=== PATIENT | female | born 1955 | race Caucasian/White ===

== ENCOUNTER 2017-08-29 17:23 | Emergency (ER) | payer BC ==
[~2017-08-29] VITALS: Ht 167.6 cm; Wt 90.7 kg
[~2017-08-29 17:23] MED LIST: Keflex500 MG PO; SULTRIDS PO
[2017-08-29 19:31] LABS: Anion Gap 9 mmol/L (6-16); Blood Urea Nitrogen 17 mg/dL (8-24); Bun/Creatinine Ratio 33.3 (12.0-20.0); CO2, Blood 22 mmol/L (21-32); Calcium, Blood 9.1 mg/dL (8.5-10.1); Chloride, Blood 104 mmol/L (98-108); Creatinine, Blood 0.51 mg/dL (0.40-1.00); Glomerular Filtration Rate >60 (60-); Glucose, Blood 287 mg/dL (70-99); Potassium, Blood 4.2 mmol/L (3.5-5.5); Sodium, Blood 135 mmol/L (136-145)
[2017-08-29] MEDS ORDERED: Roxicodone5 MG PO (20:17)
[2017-08-29] MEDS ORDERED: METF500C PO (20:19)
== END 2017-08-29 20:50 | disposition home or self-care (01) ==
LOC: ER 17:23
PROVIDERS: Emergency Medicine
DX: S82.851A Displaced trimalleolar fracture of right lower leg, initial encounter for closed fracture (principal); E11.9 Type 2 diabetes mellitus without complications; X50.9XXA Other and unspecified overexertion or strenuous movements or postures, initial encounter; Z88.1 Allergy status to other antibiotic agents
CPT/HCPCS: 36415; 73600; 73610; 76000; 80048; 83036; J3010; J7030

== ENCOUNTER 2017-08-31 12:53 | Day surgery (SDC) | payer BC ==
[~2017-08-31] VITALS: Ht 167.6 cm; Wt 87.7 kg
[~2017-08-31 12:53] MED LIST changes: +METF500C PO; +Roxicodone5 MG PO
[2017-08-31] MEDS ORDERED: Excedrin Extra1 EACH (14:31)
== END 2017-08-31 12:54 | disposition home or self-care (01) ==
LOC: ORSCSDS 12:53
PROVIDERS: Podiatrist Foot & Ankle Surgery
PROC: 0QSG04Z Reposition Right Tibia with Internal Fixation Device, Open Approach (ICD-10-PCS; principal; 2017-08-31 15:00)
PROC: 0QSJ04Z Reposition Right Fibula with Internal Fixation Device, Open Approach (ICD-10-PCS; principal; 2017-08-31 15:00)
DX: S82.851A Displaced trimalleolar fracture of right lower leg, initial encounter for closed fracture (principal); E11.9 Type 2 diabetes mellitus without complications; Z79.899 Other long term (current) drug therapy
CPT/HCPCS: 82947; C1713; C1769; J0171; J0690; J1100; J1885; J2250; J2405; J3010; J7120

== ENCOUNTER → 2022-11-25 | Outpatient (CLI) | payer SELFPAY ==
[~2022-11-25] MED LIST changes: +Excedrin Extra1 EACH
== END ==
LOC: LAB 15:37 → LAB SHORT 15:37
DX: R81 Glycosuria (principal)
CPT/HCPCS: 87086; 87147

== ENCOUNTER → 2024-07-09 | Outpatient (CLI) | payer MEDICARE ==
[2024-07-09 16:45] LABS: Bacterial Vaginosis PCR Negative (NEGATIVE); Candida glabrata-krusei, PCR NOT DETECTED (NOT DETECT)
[2024-07-10 00:01] LABS: Candida Group, PCR DETECTED (NOT DETECT)
== END ==
LOC: LAB SHORT 14:08 → LAB 14:08
PROVIDERS: Family Medicine
DX: N76.0 Acute vaginitis (principal); B96.89 Other specified bacterial agents as the cause of diseases classified elsewhere
CPT/HCPCS: 81515

== ENCOUNTER → 2024-08-21 | Outpatient (CLI) | payer MEDICARE ==
[2024-08-22 13:59] LABS: Candida glabrata-krusei, PCR NOT DETECTED (NOT DETECT)
[2024-08-22 14:00] LABS: Bacterial Vaginosis PCR Positive (NEGATIVE); Candida Group, PCR DETECTED (NOT DETECT)
== END ==
LOC: LAB 17:01 → LAB SHORT 17:01
PROVIDERS: Family Medicine
DX: N89.8 Other specified noninflammatory disorders of vagina (principal)
CPT/HCPCS: 81515